=== PATIENT | female | born 1975 | race Caucasian/White ===

== ENCOUNTER → 2017-08-30 | Outpatient (CLI) | payer OTHER | LOC: CIMAGING 13:05 | PROVIDERS: ATTEND Nurse Practitioner | DX: N64.4 Mastodynia (principal) ==

== ENCOUNTER → 2018-01-27 | Outpatient (CLI) | payer OTHER | LOC: CIMAGING 13:49 | PROVIDERS: ATTEND Nurse Practitioner | DX: N63.21 Unspecified lump in the left breast, upper outer quadrant (principal) | CPT/HCPCS: 76641-PO ==

== ENCOUNTER → 2018-02-02 | Outpatient (CLI) | payer OTHER ==
[~2018-02-02] MED LIST: BUPIVACAINE 0.5% 30 ML SDV ONE; LIDOCAINE 1% 300 MG/30 ML SDV ONE; THROMBIN (BOVINE) 5,000 UNIT VIAL TP ONE
== END ==
LOC: FIMAGING 07:20
PROVIDERS: ATTEND Nurse Practitioner
PROC: 0HBU3ZX Excision of Left Breast, Percutaneous Approach, Diagnostic (ICD-10-PCS; principal; 2018-02-02)
DX: C50.212 Malignant neoplasm of upper-inner quadrant of left female breast (principal)

== ENCOUNTER 2018-02-25 06:47 | Observation (INO) | payer OTHER ==
[2018-02-25] MEDS ORDERED: ceFAZolin 2 GM/DEXTROSE 100 ML IV ONE (07:04)
[2018-02-25] MEDS ORDERED: LR 1,000 ML IV ONE (07:05)
--- NOTE | 2018-02-25 07:17 | PDHPUP ---
History & Physical Update H&P update statement: This history and physical update is based on an assessment of the patient which was completed after admission or registration (within 24 hours), but prior to the surgery/procedure. H&P update: H&P reviewed & patient examined, no change in patient's condition since H&P completed
[2018-02-25] MEDS ORDERED: SCOPOLAMINE HYDROBROMIDE 1 MG/3 DAYS PATCH TD SCH (07:30)
[2018-02-25] MEDS ORDERED: GENTAMICIN SULFATE 80 MG/2 ML VIAL ONE ×2 (09:24→11:14)
[2018-02-25] MEDS ORDERED: BACITRACIN ZINC 14.2 GM OINTTUBE TP ONE (09:24)
[2018-02-25] MEDS ORDERED: THROMBIN (BOVINE) 20,000 UNIT SPRAY TP ONE (09:24)
[2018-02-25] MEDS ORDERED: BUPIVACAINE 0.25% 30 ML SDV ONE (09:24)
[2018-02-25] MEDS ORDERED: BACITRACIN 50,000 UNITS/10 ML SYR IRR ONE ×2 (09:25→11:15)
[2018-02-25] MEDS ORDERED: ceFAZolin 1 GM/5 ML SYR ONE ×2 (09:25→11:15)
--- NOTE | 2018-02-25 09:44 | PDANEPAE ---
ANE Past Medical History - Cardiovascular History Hx Hypertension: No Hx Arrhythmias: No Hx Chest Pain: No Hx Coronary Artery / Peripheral Vascular Disease: No Hx CHF / Valvular Disease: No Hx Palpitations: No - Pulmonary History Hx COPD: No Hx Asthma/Reactive Airway Disease: No Hx Recent Upper Respiratory Infection: No Hx Oxygen in Use at Home: No Hx Sleep Apnea: No Sleep Apnea Screening Result - Last Documented: Negative - Neurologic History Hx Cerebrovascular Accident: No Hx Seizures: No Hx Dementia: No - Endocrine History Hx Diabetes: No - Renal History Hx Renal Disorders: No - Liver History Hx Hepatic Disorders: No - Neurological & Psychiatric Hx Hx Neurological and Psychiatric Disorders: No - Cancer History Hx Cancer: Yes Cancer History Comment: left breast CA - Congenital Disorder History Hx Congenital Disorders: No - GI History Hx Gastrointestinal Disorders: No - Other Health History Other Health History: wears glasses - Chronic Pain History Chronic Pain: No - Surgical History Prior Surgeries: breast augmentation, 2012. lipoma surgeries x4. right lower orbital repair x2, last 1994 ANE Review of Systems Review of Systems: - Exercise capacity METS (RN): 5 METS ANE Patient History - Allergies Allergies/Adverse Reactions: No Known Allergies Allergy (Verified 02/21/18 21:27) - Home Medications Home Medications: NK [No Known Home Meds] 02/21/18 [Last Taken Unknown] - NPO status NPO Since - Liquids (Date): 02/25/18 NPO Since - Liquids (Time): 05:00 NPO Since - Solids (Date): 02/24/18 NPO Since - Solids (Time): 22:30 - Anes Hx Anes Hx: post operative nausea and vomiting - Smoking Hx Smoking Status: Never smoked - Family Anes Hx Family Hx Anesthesia Complications: none ANE Labs/Vital Signs - Vital Signs Blood Pressure: 102/63 Heart Rate: 60 Respiratory Rate: 14 O2 Sat (%): 96 Height: 161.29 cm Weight: 72.575 kg ANE Physical Exam - Airway Mallampati Score: Class 1 - ASA Status ASA Status: I ANE Anesthesia Plan Anesthesia Plan: general endotracheal anesthesia, GA w LMA
[2018-02-25] MEDS ORDERED: MIDAZOLAM 2 MG/2 ML VIAL ONE (09:52)
[2018-02-25] MEDS ORDERED: PROPOFOL 200 MG/20 ML VIAL ONE (09:53)
[2018-02-25] MEDS ORDERED: fentaNYL 250 MCG/5 ML INJ ONE (09:53)
[2018-02-25] MEDS ORDERED: ONDANSETRON 4 MG/2 ML VIAL ONE (09:54)
[2018-02-25] MEDS ORDERED: METOCLOPRAMIDE 10 MG/2 ML VIAL ONE (09:54)
[2018-02-25] MEDS ORDERED: fentaNYL 100 MCG/2 ML INJ ONE ×2 (12:51→14:03)
[2018-02-25] MEDS ORDERED: LIDO/EPI 1% **for epidural** 30 ML SDV ONE (13:05)
--- NOTE | 2018-02-25 13:42 | GOP ---
DATE OF OPERATION: 02/25/2018 SURGEON: Oliver Helms Jr., MD CYBERATHLETE: Manpreet Ivy CST, by surgeon request (skilled assembler surgical garment was necessary due t o the technical complexity of the case and desire to minimize patient anesthesia time). ANESTHESIA: General inhalational anesthetic. ANESTHESIOLOGIST: Brandan Wade MD. PREOPERATIVE DIAGNOSIS: Left breast cancer. POSTOPERATIVE DIAGNOSIS: Left breast cancer. PROCEDURE PERFORMED: 1. Immediate bilateral breast reconstruction using tissue expanders and human dermal allograft. 2. Removal of previous subpectoral breast implants. 3. Bilateral complete breast capsulectomy. FINDINGS: ESTIMATED BLOOD LOSS: 10 cc. INDICATIONS: The patient is a 42-year-old white female with previous submuscular breast augmentation , who was diagnosed with left breast cancer. She was deemed a good candidate for a bilateral skin sp aring mastectomy with sentinel lymph node mapping. She was deemed an excellent candidate for reconst ruction using AlloDerm wrapped tissue expanders. She was seen in the operating room in conjunction w [facility] Dr. Denisse Rodriguez for that purpose. DESCRIPTION OF PROCEDURE: After risks and benefits of the procedure were explained to the patient an d formal operative consent was obtained, she was taken to the operating room by Dr. Rodriguez, where unco mplicated bilateral nipple-sparing mastectomies were performed. Left sentinel lymph node mapping was positive, and a left axillary lymph node dissection was performed prior to the axillary lymph node d issection. Reconstruction commenced. The implants were still in place at the completion mastectomy. A complete capsulectomy was performed. The implants were removed and the capsules removed in their entirety and sent to Pathology for evaluation, separate specimens. The pockets were irrigated. I e lected to tack the muscle down to the chest wall and place the tissue expanders in a subcutaneous pos ition. The tissue expanders were prepared. They were evacuated of air, tested, and refilled with 30 0 cc of air. They were then wrapped completely in prepared AlloDerm acellular dermis graft. The All oDerm was triple rinsed in normal saline, soaked in triple antibiotic saline, and used to clamshell t he tissue expanders. They were rinsed again in triple antibiotic saline and sutured down to the ches t wall in the correct inferior and medial position. The pockets were irrigated multiple times with t riple antibiotic saline solution. 15 round drains were placed. Hemostasis was assured a final time. 15 cc of 0.25% plain Marcaine were instilled in each pocket. The skin edges were examined and felt to be healthy. Nipple areolar complex was warm and pink. I closed the incisions in two layers with 3-0 Monocryl and surgical johana. Drains were clamped, and the patient was turned back over to Dr. Rodriguez for the completion left axillary lymph node dissection. TISSUE EXPANDERS: Echolocationan [id number] devices filled to 400 cc bilaterally. DRAINS: Two CHINEDU drains placed. COMPLICATIONS: None. /[id number]/MODL
[2018-02-25] MEDS ORDERED: PROMETHAZINE HCL 25 MG/ML INJ IVP PRN ×2 (13:46→15:46)
[2018-02-25] MEDS ORDERED: NALOXONE HCL 0.4 MG/ML INJ IVP PRN (13:46)
[2018-02-25] MEDS ORDERED: fentaNYL 100 MCG/2 ML INJ IVP PRN (13:46)
[2018-02-25] MEDS ORDERED: HYDROmorphONE/DILAUDID 1 MG/ML INJ IVP PRN (13:46)
[2018-02-25] MEDS ORDERED: LR 500 ML IV PRN (13:46)
--- NOTE | 2018-02-25 13:46 | POSTANESTH ---
Post Anesthetic Evaluation Cardiovascular Status: Normal, Stable Respiratory Status: Normal, Stable Level of Consciousness/Mental Status: Can Participate in Eval Pain Control: Adequate, Prn Tx Ordered Nausea/Vomiting Control: Adequate, Prn Tx Ordered Complications Possibly Related to Anesthesia: None Noted
[2018-02-25] MEDS: ONDANSETRON 4 MG/2 ML VIAL IVP PRN ×2 (15:07→22:22)
--- NOTE | 2018-02-25 15:31 | ASMTCMCOM ---
CM Note CM Note Notes: Chart reviewed. 42 year old female with new diagnosis of breast cancer s/p bilateral mastectomy with concurrent plastic surgery reconstruction. Needs TBD. Email to ensure Breast Health Navigator Princess Jackson apprised. CM to follow for needs. Plan: TBD Date Signed: 02/25/2018 03:22 PM Electronically Signed By:Keerthi Granados RN
[2018-02-25] MEDS ORDERED: CYCLOBENZAPRINE 10 MG TAB PO PRN (15:47)
[2018-02-25] MEDS ORDERED: ceFAZolin 1 GM in NS 100 ML IV SCH (16:00)
[2018-02-25] MEDS: HYDROCODONE/APAP 5/325 TAB PO PRN ×2 (17:59→22:21)
--- NOTE | 2018-02-26 08:31 | SOAPPROG ---
SOAP Progress Note Assessment/Plan: Assessment/Plan: 42 Y F s/p B mastectomy c reconstruction, POD#1. Doing very well. Pain controlled. Dressing intact. Drains serosanguinous. Dispo: likely home later today. Has f/u planned c Michael Helms, and Kurt. Will go home with drains. Has prescriptions already. S: minimal pain--a little more when sitting up in bed. norco helping. has been oob. O: alert, nad ctab rrr abd soft breast dressings intact, no shadowing. drains serosanguinous. 02/26/18 08:28 Objective: Vital Signs Temp Pulse Resp BP Pulse Ox 36.5 C 66 16 85/70 L 97 02/26/18 08:20 02/26/18 08:20 02/26/18 08:20 02/26/18 08:20 02/26/18 08:20 02/25/18 02/26/18 02/27/18 05:59 05:59 05:59 Intake Total 2019 Output Total 510 60 Balance 1510 -60 ICD10 Worksheet Patient Problems: Problems Problem Status Onset Breast cancer Acute - ICD10 Problem Qualifiers (1) Breast cancer
[2018-02-26] MEDS: HYDROCODONE/APAP 5/325 TAB PO PRN ×2 (08:38→12:59)
[2018-02-26] MEDS ORDERED: LACTULOSE 20 GM/30 ML UDCUP PO PRN (09:40)
[2018-02-26] MEDS ORDERED: POLYETHYLENE GLYCOL 3350 17 GM PKT PO PRN (09:40)
[2018-02-26] MEDS ORDERED: BISACODYL 10 MG SUPP PR PRN (09:40)
[2018-02-26] MEDS ORDERED: MAGNESIUM HYDROXIDE 30 ML UDCUP PO PRN (09:40)
[2018-02-26] MEDS ORDERED: SENNOSIDES/DOCUSATE SODIUM TAB PO SCH (11:15)
[2018-02-26 11:45] VITALS: BP 106/66
--- NOTE | 2018-02-26 15:13 | ASDISCHSUM ---
Discharge Information Plan Status:Home with No Needs Medically Cleared to Leave:02/26/2018 Discharge Date:02/26/2018 02:54 PM CM D/C Disposition:Home, Routine, Self-Care ADT D/C Disposition:Home, Routine, Self-Care Projected Discharge Date:02/26/2018 02:54 PM Transportation at D/C:Family Discharge Delay Reason: Follow-Up Date:02/26/2018 02:54 PM Discharge Slot: Final Diagnosis: Placement Information Patient Contact Information Contact Name:DOMINIC Relationship: Address:[address] Work Phone: City:[place] Alternate Phone: [facility]/Zip Code:[place] [address] Email: Financial Information Financial Class:HMO and PPO Plans Primary Plan Desc:[employer] AMANDA EASLEY Primary Plan Number:[id number] Secondary Plan Desc: Secondary Plan Number: Assessment Information BC CM Progress Note CM Note CM Note Notes: Chart reviewed. 42 year old female with new diagnosis of breast cancer s/p bilateral mastectomy with concurrent plastic surgery reconstruction. Needs TBD. Email to ensure Breast Health Navigator Princess Jackson apprised. CM to follow for needs. Plan: TBD Date Signed: 02/25/2018 03:22 PM Electronically Signed By:Keerthi Granados RN Case Management Discharge Plan Note Case Management Discharge Discharge Order Complete? Answers: Yes Patient to Obtain Answers: via Family Medications Transportation Arranged Answers: Family/Friends Discharge Comments Notes: Pt is s/p bilateral mastectomies. She is discharging home today with family and no CM needs. Intervention Information
[2018-02-28] MEDS ORDERED: PATCH REMOVAL 1 EA PATCH TD SCH (07:16)
--- NOTE | 2018-03-08 09:25 | GOP ---
DATE OF OPERATION: 02/25/2018 SURGEON: Shena Rodriguez MD ACCOUNT INSTALLER: Lizet Honeycutt, EBONIE. ANESTHESIA: General. ANESTHESIOLOGIST: Brandan Wade MD. PREOPERATIVE DIAGNOSIS: Left breast cancer. POSTOPERATIVE DIAGNOSIS: Left breast cancer with metastasis to the axillary lymph nodes. PROCEDURE PERFORMED: Bilateral nipple sparing mastectomy, right sentinel lymph node, left axillary dissection. FINDINGS: Positive left axillary lymph node. SPECIMENS: Right breast short superior, long lateral right sentinel lymph node. Left breast, short superior long lateral and left sentinel lymph node followed by left axillary contents. ESTIMATED BLOOD LOSS: 100 cc. INDICATIONS: A 42-year-old with previous subpectoral breast augmentation, who was diagnosed with breast cancer. She presents for nipple sparing mastectomy. DESCRIPTION OF PROCEDURE: The patient was brought into the operating room, placed supine on the table and general anesthesia was administered. Her bilateral neck and chest were prepped and draped in the usual sterile fashion. I made an inframammary incision and created superior and inferior skin flaps. I used dialators to assist with the dissection through the breast ligamentous tissue. I then performed a nipple sparing mastectomy. I marked the subareolar tissue on the breast specimen. My dissection occurred to the clavicle, sternum , inframammary fold, and mid axillary line. I removed the breast from the pectoralis fascia. It was marked short superior, long lateral, double short sub areolar. I used the gamma probe to identify the right sentinel lymph node. This was sent to Pathology for frozen. Hemostasis was achieved. Next, I moved to the left side. The tumor is in the left lower inner quadrant and was close to the skin. I paid very close attention to have an adequate margin at this area. In a similar fashion I removed the breast including the pectoralis fascia. I used the gamma probe to identify the left sentinel lymph node. Unfortunately, this came back positive. I then made a counter incision underneath the left axilla. I identified the left axillary vein, thoracodorsal nerve and long thoracic nerve and removed the axillary contents from this area. This was submitted to Pathology for permanent. Hemostasis was achieved. I placed a drain in the axilla. It was sutured in place with 3-[address] Helms was able to do the reconstruction. She was awakened in the operating room, extubated, transferred to PACU in stable condition. SURGEON: Shena Rodriguez MD /[id number]/MODL MTDD
--- NOTE | 2018-03-09 10:51 | GDS ---
DISCHARGE DIAGNOSIS: Left breast cancer with metastasis to the axillary lymph nodes. PROCEDURES: 1. Bilateral nipple sparing mastectomy, right sentinel lymph node, left axillary dissection with Dr. Shena Rodriguez. 2. Immediate bilateral breast reconstruction using tissue expanders and human dermal allograft with removal of previous subpectoral breast implants and complete bilateral breast capsulectomy with Dr. Rachael Helms. 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 She elected for bilateral mastectomy with reconstruction. She did have a positive sentinel lymph node on the left side and so an axillary node dissection was completed. She underwent reconstruction. The procedures were uncomplicated. She tolerated them well. The patient's postoperative course was relatively uneventful. Her pain was well controlled. Her ebonie ins were stripped and recorded. Her vital signs remained stable. DISCHARGE INSTRUCTIONS: Patient was discharged to home in stable condition with instructions on how to take care of her drains. She had an appointment set up with Dr. Helms the next week and plans t o see Dr. Rodriguez as well. She will also be following up with Dr. Hicks in Oncology. Limitations in wound care were discussed. /[id number]/MODL
== END 2018-02-26 14:54 | disposition home or self-care (01) ==
LOC: F3N 06:47 → F1N 07:49
PROVIDERS: ADMIT Surgery; ATTEND Surgery
PROC: 0HHV0NZ Insertion of Tissue Expander into Bilateral Breast, Open Approach (ICD-10-PCS; principal; 2018-02-25 10:00)
PROC: 07T50ZZ Resection of Right Axillary Lymphatic, Open Approach (ICD-10-PCS; principal; 2018-02-25 10:00)
PROC: 0HTV0ZZ Resection of Bilateral Breast, Open Approach (ICD-10-PCS; principal; 2018-02-25 10:00)
PROC: 07T60ZZ Resection of Left Axillary Lymphatic, Open Approach (ICD-10-PCS; principal; 2018-02-25 10:00)
DX: C50.912 Malignant neoplasm of unspecified site of left female breast (principal)
CPT/HCPCS: 19303; 19357; 38525; 78195; 97161; 97165; A9520; G0378; J0690; J1580; J2250; J2405; J2550; J2704; J2765; J3010; Q4116

== ENCOUNTER → 2018-04-06 | Outpatient (CLI) | payer OTHER | LOC: FIMAGING 10:22 | PROVIDERS: ATTEND Physician Assistant Surgical | DX: C50.912 Malignant neoplasm of unspecified site of left female breast (principal); Z95.828 Presence of other vascular implants and grafts ==